=== PATIENT | female | born 1945 | race Caucasian/White ===

== ENCOUNTER → 2017-08-04 | Outpatient (CLI) | payer OTHER ==
[~2017-08-04] MED LIST: ASPI81CH6 CHEW; BENA25TA6 PO; GLUC500C5 PO; HYDR-3288 PO; HYDR25TA5 PO; LISI30TA4 PO; MAGN500T5 PO; MELO15TA20 PO; OXYB5TAB8 PO; SIMV10TA PO; TAMO20TA6 PO; VITATAB56 PO
== END ==
LOC: CPRE 09:02
PROVIDERS: ATTEND Orthopaedic Surgery Sports Medicine
DX: M16.12 Unilateral primary osteoarthritis, left hip (principal)

== ENCOUNTER 2017-08-21 05:06 | Inpatient (IN) | payer OTHER, MEDICARE ==
[~2017-08-21] VITALS: Ht 167.6 cm; Wt 75.6 kg
[~2017-08-21 05:06] MED LIST changes: -ASPI81CH6 CHEW; -HYDR-3288 PO
[2017-08-21] MEDS ORDERED: POVIDONE IODINE 5% (ANTISEPSIS KIT) 4 APPLICATIONS EACH NARE PRN (05:30)
[2017-08-21] MEDS ORDERED: LACTATED RINGER'S 1000 ML IV PRN (05:30)
[2017-08-21] MEDS ORDERED: SODIUM CHLORID 0.9% 500 ML IV PRN (05:30)
[2017-08-21] MEDS ORDERED: CHLORHEXIDINE GLUCONATE 2 % 1 PACK (2 CLOTHS) TOPICAL PRN (05:30)
[2017-08-21] MEDS ORDERED: METOPROLOL TARTRATE 25 MG TAB PO PRN (05:30)
[2017-08-21] MEDS ORDERED: POVIDONE IODINE 7.5% SCRUB 118 ML BOTTLE TOPICAL SCH (05:45)
[2017-08-21] MEDS ORDERED: SODIUM CHLORIDE 0.9% IV SCH (05:45)
[2017-08-21] MEDS ORDERED: DEXAMETHASONE SOD PHOS PF 10 MG/ML VIAL IV PUSH ONE (05:45)
[2017-08-21] MEDS ORDERED: CHLORHEXIDINE GLUCONATE 4% SOLN 120 ML BTL TOPICAL SCH (05:45)
[2017-08-21] MEDS ORDERED: EXPAREL PERI-ARTICULAR INJECTION (TOTAL VOL. 60 ML) P-ARTICULR SCH ×2 (05:45)
[2017-08-21] MEDS ORDERED: VANCOMYCIN 1000 MG/NS 250 ML (for <70 kg) IV SCH ×2 (05:45)
[2017-08-21] MEDS ORDERED: TRANEXAMIC ACID IV SCH (05:45)
[2017-08-21] MEDS ORDERED: TRANEXAMIC PERI-ARTICULAR 3,000 MG/NS 100 ML P-ARTICULR SCH ×2 (05:45)
[2017-08-21] MEDS ORDERED: GENTAMICIN SULFATE 80 MG/2 ML VIAL ONE (06:01)
[2017-08-21] MEDS ORDERED: VANCOMYCIN HCL 1000 MG VIAL ONE (06:04)
[2017-08-21] MEDS ORDERED: DEXAMETHASONE SOD PHOS PF 10 MG/ML VIAL IV PUSH SCH (06:15)
[2017-08-21] MEDS ORDERED: VANCOMYCIN 1 GM/200 ML PREMIX IV SCH (06:15)
[2017-08-21] MEDS ORDERED: DEXAMETHASONE SOD PHOS 20 MG/5 ML VIAL IV PUSH SCH (06:15)
[2017-08-21] MEDS ORDERED: BUPIVACAINE PF 0.75% DEX-WATER INJ 2 ML AMP ONE (06:38)
[2017-08-21] MEDS ORDERED: ceFAZolin INJ 1,000 MG VIAL ONE (06:40)
[2017-08-21] MEDS ORDERED: CEFAZOLIN INJ 2,000 MG in SODIUM CHLORIDE 0.9% INJ 100 ML IV SCH (06:45)
[2017-08-21] MEDS ORDERED: HYDR-3288 PO (06:53)
[2017-08-21] MEDS ORDERED: ASPI81CH6 CHEW (06:54)
[2017-08-21] MEDS ORDERED: Post-op Orders (for Pharmacy) XX ONE (07:00)
[2017-08-21] MEDS ORDERED: MORPHINE SULFATE 4 MG/ML INJ IV PUSH PRN (07:00)
[2017-08-21] MEDS ORDERED: ONDANSETRON HCL 4 MG/2 ML VIAL IVP PRN (07:00)
[2017-08-21] MEDS ORDERED: diphenhydrAMINE HCL 50 MG/ML VIAL IV PUSH PRN (07:00)
[2017-08-21] MEDS ORDERED: BISACODYL 10 MG SUPP RECTAL PRN (07:00)
[2017-08-21] MEDS ORDERED: PILL SPLITTER OTHER PRN (07:30)
[2017-08-21] MEDS ORDERED: PROPOFOL 200 MG/20 ML AMP ONE (08:03)
--- NOTE | 2017-08-21 08:29 | RADRPT ---
EXAM DATE/TIME: 08/21/2017 07:14 [facility] COMPARISON: No previous studies available for comparison. INDICATIONS : Left total hip replacement. MEDICAL HISTORY : None. SURGICAL HISTORY : None. ENCOUNTER: Initial ACUITY: 1 day PAIN SCORE: Non-responsive. LOCATION: Left hip. FINDINGS: The patient is status post left hip replacement with prosthesis in good position. No acute fracture o r dislocation is noted. CONCLUSION: Status post left hip replacement with prosthesis in good position. Ronen Quintana MD on August 21, 2017 at 8:27 Board Certified Radiologist. This report was verified electronically.
[2017-08-21] MEDS ORDERED: DO NOT ADM ANY ANTICOAGULANT DRUGS PRN (08:37)
[2017-08-21] MEDS ORDERED: MIDAZOLAM HCL 2 MG/2 ML VIAL ONE (08:47)
[2017-08-21] MEDS: TAMOXIFEN CITRATE 10 MG TAB PO SCH (09:00)
--- NOTE | 2017-08-21 09:11 | MP ---
cc: Ruslan Cisneros MD DATE OF OPERATION: PREOPERATIVE DIAGNOSIS: Left hip osteoarthritis. POSTOPERATIVE DIAGNOSIS: Left hip osteoarthritis. PROCEDURE: Left total hip arthroplasty. SURGEON: Ruslan Cisneros MD MANAGER HOME: JHONATHAN Rao. ANESTHESIA: Spinal. ESTIMATED BLOOD LOSS: 300 mL COMPLICATIONS: None. IMPLANTS USED: DePuy Corail size 12 press-fit standard offset femoral stem size 52, solid Redfield Gription cup, 36 mm highly cross-linked polyethylene neutral liner, 36 mm cobalt chrome head, +1.5 neck. JUSTIFICATION: The patient is a 71-year-old female with history of severe end-stage osteoarthritis involving the left hip. She has severe disabling pain with standing, walking, ambulation, weightbearing activities and severe pain at rest. She has failed greater than 3 months of nonoperative conservative treatment to include medications, therapy, injections, ambulatory assist aids, home exercise program, activity modification, weight loss attempts. X-ray of the left hip revealed severe end-stage arthritis with [id number] joint space narrowing, subchondral sclerosis, subchondral cysts, osteophyte formation with subluxation and deformity. The patient was counseled on the risks and alternatives of a total hip arthroplasty. The risks were discussed, which include but are not limited to anesthesia, bleeding, infection, damage to nerves and blood vessels, pain, stiffness, fracture dislocations, leg length discrepancy, blood clots, pulmonary embolism and even . The patient's pain is very severe. She favors the benefits over the risks. She did wish to proceed with surgery. PROCEDURE IN DETAIL: Written consent was obtained. The patient was identified by name, taken to the operating room, placed supine on the operating table. Spinal anesthesia was administered to the patient as well as 2 grams of IV Ancef and 1 gram of IV vancomycin. The left and right feet were placed in padded traction boots. The left hip and left lower extremity prepped and draped using isopropyl alcohol, Hibiclens solution and ChloraPrep solution. After a timeout was performed, a longitudinal incision was made over the anterolateral aspect of the left hip. The fascial layer was incised. Dissection was carried over tensor fascia debi, beneath the rectus femoris to allow exposure of the anterior hip capsule. A capsulotomy incision was performed. An oscillating saw was used to perform a femoral neck cut. The osteoarthritic femoral head and neck component was removed. A 10-blade scalpel was used to excise the labrum. Sequential reaming began at size 47, was carried through to size 52. Subsequently, a solid Redfield Gription cup 52 mm was inserted into the acetabulum in approximately 45 degrees of abduction, 10 degrees of anteversion in a press-fit manner. There was good purchase and fixation. After insertion of the cup, a screw hole eliminator was placed, followed by the neutral liner. The liner was impacted in place and tested for stability. Attention was turned to the femur. The leg was externally rotated, extended, and adducted. The capsule was released off the undersurface of the greater trochanter to allow for elevation and lateralization of the femur. A box-cutting osteotome was used to gain entrance into the intramedullary canal of the femur, followed by canal finder and sequential broaching up to size 12. A calcar planer was used to plane the calcar. The trial head and neck combinations were evaluated and final components implanted as described. With the current components, the leg could achieve external rotation of 70 degrees and extension all the way down to the ground without evidence of anterior instability or impingement. Fluoroscopic imaging showed appropriate implantation of components. Surgical wound was thoroughly irrigated with sterile saline plus antibiotic-impregnated solution. Fascial layer was closed with #1 Vicryl suture, subcutaneous layer with 2-0 Vicryl suture. Skin was closed with Dermabond. Sterile dressing was applied. The patient tolerated with no intraoperative complications noted. Riley Kwon, physician psychological assistant certified, was present during the entire procedure to include patient positioning and the procedure itself. The medical necessity of a physician psychological assistant was indicated in this case due to the complexity of the procedure. He assisted with manipulation of the leg and also retraction of muscles, tendons, bone, and neurovascular structures. He assisted with preparation of bone also implantation of the prosthetic replacement. MD MIC Nieto/MEME , 08:26 AM , 09:09 AM
[2017-08-21] MEDS: SODIUM CHLOR 0.9% 1000 ML INJ 1,000 ML IV SCH ×2 (09:24→17:11)
--- NOTE | 2017-08-21 09:30 | RADRPT ---
EXAM DATE/TIME: 08/21/2017 09:03 [facility] COMPARISON: HIP LEFT (AP&LAT 2/3VWS) W AP PELVIS, August 21, 2017, 7:14. INDICATIONS : Post op left hip surgery. MEDICAL HISTORY : None. SURGICAL HISTORY : None. ENCOUNTER: Initial ACUITY: 1 day PAIN SCORE: 0/10 LOCATION: Left hip and pelvis FINDINGS: AP and crosstable lateral views of the left hip were obtained as well as an AP view the pelvis. The p atient is again noted to be status post left hip arthroplasty. The femoral and acetabular components are intact and in normal alignment. There is surrounding soft tissue swelling and gas within the tiss ue planes. There is no evidence of fracture. CONCLUSION: Expected postoperative changes status post left hip arthroplasty. Robert Aviles MD on August 21, 2017 at 9:26 Board Certified Radiologist. This report was verified electronically.
[2017-08-21] MEDS ORDERED: *morphine SULFATE 4 MG/ML PERIprocedure ONLY ONE (10:54)
[2017-08-21] MEDS: ACETAMINOPHEN/HYDROcodone 325 MG/7.5 MG TAB PO PRN ×3 (12:08→21:19)
--- NOTE | 2017-08-21 12:46 | HHI.DCPOC ---
Discharge Care Plan Diagnosis: (1) Primary localized osteoarthrosis, pelvic region and thigh Your Health Problems Are: Difficulty with ADL Goals to Promote Your Health * To prevent worsening of your condition and complications * To maintain your health at the optimal level Directions to Meet Your Goals Take your medications as prescribed Follow your dietary instruction Follow activity as directed Keep your appointments as scheduled Take your immunizations and boosters as scheduled If your symptoms worsen call your PCP, if no PCP go to Urgent Care Center or Emergency Room Smoking is Dangerous to Your Health. Avoid second hand smoke Call the 24-hour hour crisis hotline for domestic abuse at Ruslan Kwon Aug 21, 2017 12:46
[2017-08-21 16:00] VITALS: BP 128/59; PULSE 81; RESP 18; TEMP 98.1; O2SAT 97
[2017-08-21] MEDS: VANCOMYCIN INJ 1,000 MG in SODIUM CHLOR 0.9% 250 ML INJ 250 ML IV SCH (17:11)
[2017-08-21 17:12] VITALS: BP 128/59; PULSE 86; RESP 16; TEMP 98.1; O2SAT 97
[2017-08-21] MEDS ORDERED: OXYB5TAB8 PO (17:47)
--- NOTE | 2017-08-21 18:05 | PD.CONS ---
HPI Service [facility] Consult Requested By Reason for Consult Medical management Primary Care Physician Aileen Hill MD Diagnoses: (1) Primary localized osteoarthrosis, pelvic region and thigh History of Present Illness 71-year-old female with a history of hypertension and breast cancer underwent a left hip replacement today and is recovering well postop. She states that she has been physically preparing for this and has already been up to the bathroom, ambulatory with a walker. She denies any shortness of breath, her pain is well controlled. Her past medical history includes hysterectomy, breast cancer in 2002. Her hypertension is well controlled on 2 medications. She is very positive, pleasant and has no complaints. Review of Systems Constitutional: DENIES: Fever, Weight gain, Weight loss, Chills Eyes: DENIES: Eye pain, Vision loss, Photosensitivity, Double Vision Respiratory: DENIES: Apneas, Cough, Snoring, Wheezing, Hemoptysis Cardiovascular: DENIES: Chest pain, Syncope, Dyspnea on Exertion Gastrointestinal: DENIES: Abdominal pain, Bloody stools, Constipation, Diarrhea , Nausea, Vomiting Musculoskeletal: COMPLAINS OF: Joint pain Integumentary: DENIES: Abnormal pigmentation, Pruritus, Rash Immunologic/allergic: DENIES: Eczema, Urticaria Neurologic: DENIES: Localized weakness, Paresthesias, Seizures, Speech Problems Psychiatric: DENIES: Anxiety, Confusion, Mood changes, Depression, Hallucinations, Agitation, Suicidal Ideation Past Family Social History Allergies: Coded Allergies: Penicillins (Verified Allergy, Unknown, ITCHING, 08/21/17) Past Medical History Breast cancer, hypertension, skin cancer of upper lip Past Surgical History Hysterectomy 2007, breast cancer 2002 Family History Father of heart attack, mother of cancer (type uncertain) Social History 1-2 drinks socially once per week, does not smoke Physical Exam Vital Signs Vital Signs Date Time Temp Pulse Resp B/P (MAP) Pulse Ox O2 Delivery O2 Flow Rate FiO2 08/21/17 17:12 98.1 86 16 128/59 (82) 97 08/21/17 16:50 99.0 83 17 100/51 (67) 100 Room Air 08/21/17 16:00 82 19 116/56 (76) 100 Room Air 08/21/17 15:00 91 14 98/54 (69) 99 Room Air 08/21/17 14:00 90 18 104/53 (70) 100 Nasal Cannula 2 08/21/17 13:00 94 21 95/53 (67) 100 Nasal Cannula 2 08/21/17 12:00 72 15 91/52 (65) 100 Nasal Cannula 2 08/21/17 11:00 76 13 101/58 (72) 100 Nasal Cannula 2 08/21/17 10:30 75 15 109/56 (73) 100 Nasal Cannula 2 08/21/17 10:15 79 14 104/48 (66) 100 Nasal Cannula 2 08/21/17 10:00 77 17 94/51 (65) 100 Nasal Cannula 2 08/21/17 09:45 68 18 99/54 (69) 100 Nasal Cannula 2 08/21/17 09:30 69 21 99/51 (67) 100 Nasal Cannula 2 08/21/17 09:15 69 15 100/51 (67) 97 Nasal Cannula 2 08/21/17 09:00 75 14 94/47 (63) 98 Nasal Cannula 2 08/21/17 08:45 74 16 102/53 (69) 96 Nasal Cannula 2 08/21/17 08:40 96.9 76 20 98/50 (66) 92 Nasal Cannula 2 08/21/17 05:55 97.8 89 16 159/69 (99) 99 Physical Exam GENERAL: This is a well-nourished, well-developed patient, in no apparent distress. SKIN: No rashes, ecchymoses or lesions. Cool and dry. HEAD: Atraumatic. Normocephalic. No temporal or scalp tenderness. EYES: Pupils equal round and reactive. Extraocular motions intact. No scleral icterus. No injection or drainage. ENT: Nose without bleeding, purulent drainage or septal hematoma. Throat without erythema, tonsillar hypertrophy or exudate. Uvula midline. Airway patent. NECK: Trachea midline. No JVD or lymphadenopathy. Supple, nontender, no meningeal signs. CARDIOVASCULAR: Regular rate and rhythm without murmurs, gallops, or rubs. RESPIRATORY: Clear to auscultation. Breath sounds equal bilaterally. No wheezes , rales, or rhonchi. GASTROINTESTINAL: Abdomen soft, non-tender, nondistended. No hepato-splenomegaly , or palpable masses. No guarding. MUSCULOSKELETAL: Left hip has surgical bandage over surgical incision. Distal sensations in lower extremities are intact, no sign of DVT, no edema. NEUROLOGICAL: Awake and alert. Cranial nerves II through XII intact. Motor and sensory grossly within normal limits. Five out of 5 muscle strength in all muscle groups. Normal speech. Assessment and Plan Problem List: (1) Primary localized osteoarthrosis, pelvic region and thigh ICD Code: M16.10 - Unilateral primary osteoarthritis, unspecified hip Assessment and Plan Elective left hip replacement Patient reports she has osteoarthritis in both hips but the left hip pain became intolerable She has unimpressive ability following surgery only today. She has already ambulated to the bathroom. Orthopedics to determine timing of discharge Patient is on Lovenox Hypertension Home medications reviewed Patient has been hypotensive today so all medications for hypertension have been held until pressure increases h/o Breast cancer Patient takes tamoxifen Slight increased risk of blood clots associated with tamoxifen, so will recommend she resume this in about 2 weeks DVT prophylaxis Tiburcio Child MD Aug 21, 2017 18:05
[2017-08-21 19:40] VITALS: O2SAT 97
[2017-08-21 20:00] VITALS: BP 114/53; PULSE 79; RESP 18; TEMP 97.9; O2SAT 95
[2017-08-21] MEDS ORDERED: PRAVASTATIN SOD 10 MG TAB PO SCH (21:00)
[2017-08-21] MEDS ORDERED: ZOLPIDEM TARTRATE 5 MG TAB PO PRN (21:00)
[2017-08-21] MEDS: OXYBUTYNIN CHLORIDE 5 MG TAB PO SCH (21:17)
[2017-08-22 01:30] VITALS: BP 103/55; PULSE 71; RESP 17; TEMP 97.7; O2SAT 95
[2017-08-22] MEDS: ACETAMINOPHEN/HYDROcodone 325 MG/7.5 MG TAB PO PRN ×3 (01:38→12:40)
[2017-08-22] MEDS: SODIUM CHLOR 0.9% 1000 ML INJ 1,000 ML IV SCH (03:30)
[2017-08-22 05:15] VITALS: BP 109/52; PULSE 79; RESP 16; TEMP 97.9; O2SAT 96
[2017-08-22] MEDS: VANCOMYCIN INJ 1,000 MG in SODIUM CHLOR 0.9% 250 ML INJ 250 ML IV SCH (05:32)
[2017-08-22 05:52] LABS: HEMATOCRIT 26.3 % (35.0-46.0); HEMOGLOBIN 9.2 GM/DL (11.6-15.3); MEAN CELL VOLUME 90.6 FL (80.0-100.0); MEAN CORPUSCULAR HEMOGLOBIN 31.8 PG (27.0-34.0); MEAN CORPUSCULAR HGB CONC 35.1 % (32.0-36.0); MEAN PLATELET VOLUME 8.4 FL (7.0-11.0); PLATELET COUNT 151 TH/MM3 (150-450); WHITE BLOOD COUNT 7.8 TH/MM3 (4.0-11.0)
[2017-08-22 08:00] VITALS: BP 107/53; PULSE 68; RESP 16; TEMP 97.7; O2SAT 97
[2017-08-22] MEDS ORDERED: ENOXAPARIN SODIUM 40 MG/0.4 ML SYRINGE SQ SCH (08:00)
[2017-08-22] MEDS: OXYBUTYNIN CHLORIDE 5 MG TAB PO SCH (08:17)
--- NOTE | 2017-08-22 08:37 | PD.ORT.PN ---
Subjective Post Op Day #: 1 Subjective Remarks doing well. has been ambulating with PT. pain tolerable. Objective Vitals Vital Signs Date Time Temp Pulse Resp B/P (MAP) Pulse Ox O2 Delivery O2 Flow Rate FiO2 08/22/17 08:00 97.7 68 16 107/53 (71) 97 08/22/17 05:15 97.9 79 16 109/52 (71) 96 08/22/17 01:30 97.7 71 17 103/55 (71) 95 08/21/17 20:00 97.9 79 18 114/53 (73) 95 08/21/17 19:40 97 21 08/21/17 17:12 98.1 86 16 128/59 (82) 97 08/21/17 16:50 99.0 83 17 100/51 (67) 100 Room Air 08/21/17 16:00 98.1 81 18 128/59 (82) 97 08/21/17 16:00 82 19 116/56 (76) 100 Room Air 08/21/17 15:00 91 14 98/54 (69) 99 Room Air 08/21/17 14:00 90 18 104/53 (70) 100 Nasal Cannula 2 08/21/17 13:00 94 21 95/53 (67) 100 Nasal Cannula 2 08/21/17 12:00 72 15 91/52 (65) 100 Nasal Cannula 2 08/21/17 11:00 76 13 101/58 (72) 100 Nasal Cannula 2 08/21/17 10:30 75 15 109/56 (73) 100 Nasal Cannula 2 08/21/17 10:15 79 14 104/48 (66) 100 Nasal Cannula 2 08/21/17 10:00 77 17 94/51 (65) 100 Nasal Cannula 2 08/21/17 09:45 68 18 99/54 (69) 100 Nasal Cannula 2 08/21/17 09:30 69 21 99/51 (67) 100 Nasal Cannula 2 08/21/17 09:15 69 15 100/51 (67) 97 Nasal Cannula 2 08/21/17 09:00 75 14 94/47 (63) 98 Nasal Cannula 2 08/21/17 08:45 74 16 102/53 (69) 96 Nasal Cannula 2 08/21/17 08:40 96.9 76 20 98/50 (66) 92 Nasal Cannula 2 I/O 08/21/17 08/21/17 08/21/17 08/22/17 08/22/17 08/22/17 07:00 15:00 23:00 07:00 15:00 23:00 Intake Total 1325 ml 840 ml 1065 ml Output Total 200 ml 400 ml Balance 1125 ml 440 ml 1065 ml Intake Oral 25 ml 250 ml 480 ml IV Total 0 ml 590 ml 585 ml Other 1300 ml Output Urine Total 400 ml Estimated Blood Loss 200 ml # Voids 3 # Bowel Movements 0 Result Diagram: 08/22/17 0528 Objective Remarks in bed, nad dressing c/d/i thigh soft neg homans nvi Assessment & Plan Ortho Post Op Day #: 1 Problem List: Assessment and Plan s/p L VALDIMIR wbat ok to maintain dressing unless saturated lovenox, d/c on asa81 d/c planning home with [facility] and pt - cleared today if does well in PT rx in chart f/up dr. ochoa 2 weeks Ruslan Kwon Aug 22, 2017 08:37
--- NOTE | 2017-08-22 08:38 | HHI.FF ---
Face to Face Verification Diagnosis: (1) Primary localized osteoarthrosis, pelvic region and thigh Physical Therapy Gait training, Safety evaluation, Transfer training, bed to chair Hip: Total hip, Protocol: Left Left LE Weight Bearing: WB as tolerated Nursing RN: 3 days/week x 2 weeks Nursing: Dressing changes Dressing Changes: Daily dressing change I have seen patient Zenobia Ortega on 08/22/17. My clinical findings support the need for the requested home health care services because: Limited ability to care for self High risk of falls I certify that my clinical findings support that this patient is homebound because: Post-op weakness Unsteady gait/balance Ruslan Kwon Aug 22, 2017 08:38
[2017-08-22] MEDS ORDERED: LISINOPRIL 20 MG TAB PO SCH (09:00)
[2017-08-22] MEDS ORDERED: HYDROCHLOROTHIAZIDE 25 MG TAB PO SCH (09:00)
[2017-08-22 09:31] VITALS: O2SAT 99
[2017-08-22 11:47] VITALS: BP 107/52; PULSE 69; RESP 16; TEMP 98; O2SAT 93
[2017-08-22] MEDS: TAMOXIFEN CITRATE 10 MG TAB PO SCH (12:39)
--- NOTE | 2017-08-22 15:48 | HHI.PR ---
Subjective Remarks Late entry Patient was seen earlier today. She is in bed she says she feels tired she had physical therapy today. Ovid nauseated in the morning however she is able to eat. No vomiting or diarrhea. No fever or chills. Objective Vitals Vital Signs Date Time Temp Pulse Resp B/P (MAP) Pulse Ox O2 Delivery O2 Flow Rate FiO2 08/22/17 11:47 98.0 69 16 107/52 (70) 93 08/22/17 09:31 99 21 08/22/17 08:00 97.7 68 16 107/53 (71) 97 08/22/17 05:15 97.9 79 16 109/52 (71) 96 08/22/17 01:30 97.7 71 17 103/55 (71) 95 08/21/17 20:00 97.9 79 18 114/53 (73) 95 08/21/17 19:40 97 21 08/21/17 17:12 98.1 86 16 128/59 (82) 97 08/21/17 16:50 99.0 83 17 100/51 (67) 100 Room Air 08/21/17 16:00 98.1 81 18 128/59 (82) 97 08/21/17 16:00 82 19 116/56 (76) 100 Room Air I/O 08/21/17 08/21/17 08/21/17 08/22/17 08/22/17 08/22/17 06:59 14:59 22:59 06:59 14:59 22:59 Intake Total 1325 ml 840 ml 1065 ml Output Total 200 ml 400 ml Balance 1125 ml 440 ml 1065 ml Intake Oral 25 ml 250 ml 480 ml IV Total 0 ml 590 ml 585 ml Other 1300 ml Output Urine Total 400 ml Estimated Blood Loss 200 ml # Voids 3 # Bowel Movements 0 Result Diagram: 08/22/17 0528 Imaging Last Impressions Hip and Pelvis X-Ray 08/21/17 0651 Signed Impressions: Service Date/Time: Monday, August 21, 2017 09:03 - CONCLUSION: Expected postoperative changes status post left hip arthroplasty. Robert Aviles MD Objective Remarks GENERAL: This is a well-nourished, well-developed patient, in no apparent distress. CARDIOVASCULAR: Regular rate and rhythm without murmurs, gallops, or rubs. RESPIRATORY: Clear to auscultation. Breath sounds equal bilaterally. No wheezes , rales, or rhonchi. GASTROINTESTINAL: Abdomen soft, non-tender, nondistended. No hepato-splenomegaly , or palpable masses. No guarding. MUSCULOSKELETAL: Left hip has surgical bandage over surgical incision. Distal sensations in lower extremities are intact, no sign of DVT, no edema. NEUROLOGICAL: Awake and alert. Cranial nerves II through XII intact. Motor and sensory grossly within normal limits. Five out of 5 muscle strength in all muscle groups. Normal speech. A/P Problem List: (1) Primary localized osteoarthrosis, pelvic region and thigh ICD Code: M16.10 - Unilateral primary osteoarthritis, unspecified hip Assessment and Plan Elective left hip replacement Patient reports she has osteoarthritis in both hips but the left hip pain became intolerable She has unimpressive ability following surgery only today. She has already ambulated to the bathroom. Orthopedics to determine timing of discharge Patient is on Lovenox Hypertension Home medications reviewed Patient has been hypotensive today so all medications for hypertension have been held until pressure increases h/o Breast cancer Patient takes tamoxifen Slight increased risk of blood clots associated with tamoxifen, so will recommend she resume this in about 2 weeks DVT prophylaxis Lovenox appears medically stable. Can be discharged, to follow-up with PCP and consultants Marleni Linder MD Aug 22, 2017 15:48
[2017-08-22] MEDS ORDERED: DOCUSATE SODIUM 100 MG CAP PO SCH (21:00)
[2017-08-22] MEDS ORDERED: MULTIVITAMINS/MINERALS THERAPEUTIC TAB PO SCH (21:00)
--- NOTE | 2017-08-23 15:22 | MD ---
cc: Ruslan Cisneros MD DATE OF DISCHARGE: 08/22/2017 ADMITTING DIAGNOSIS: Severe degenerative osteoarthritis of the left hip. DISCHARGE DIAGNOSIS: Severe degenerative osteoarthritis of the left hip. HISTORY OF PRESENT ILLNESS: Ms. Ortega is a 71-year-old female who presented to the [facility] for evaluation by Dr. Ruslan Cisneros regarding progressive and severe left hip pain. The patient states the pain is a severe, aching sensation aggravated by weightbearing activities. She notes the pain is inhibiting her activities of daily living currently and her ability to ambulate safely. She has no alleviating factors. At this point in time in the past, she has tried medications, assistive devices, physical therapy and home exercise program without relief of symptoms. She does have x-ray evidence of severe degenerative osteoarthritis of the left hip. While in the office, the patient was counseled on her diagnosis and treatment options. The risks, benefits, and indications were all discussed. The patient did elect to proceed with surgical intervention to include left total hip arthroplasty. HOSPITAL COURSE: Date of surgery, 08/21/2017, left total hip arthroplasty, anterior approach. Postop after surgery, the patient admitted to [facility] where she received appropriate medical management, pain control, DVT prophylaxis, as well as physical therapy. DISCHARGE: Once being discharged from the hospital, the patient was cleared to go home where she received home health and home physical therapy. She is in stable condition. She may weight bear as tolerated with anterior hip precaution. She has been instructed on appropriate wound care management. She has been provided prescriptions for pain control as well as DVT prophylactic medication. She has also been provided a followup appointment in approximately 2 weeks from her date of surgery. The patient has asked appropriate questions which have been answered. The patient has been discharged. Dictated by JHONATHAN Callaway Ruslan Cisneros MD JWM/AMINA , 08:12 AM , 08:23 AM
== END 2017-08-22 14:46 | disposition home or self-care (01) | DRG 470 ==
LOC: HSDI 05:06 → N06B 16:59
PROVIDERS: ADMIT Orthopaedic Surgery Sports Medicine; ATTEND Orthopaedic Surgery Sports Medicine
PROC: 0SRB02A Replacement of Left Hip Joint with Metal on Polyethylene Synthetic Substitute, Uncemented, Open Approach (ICD-10-PCS; principal; 2017-08-21 06:45)
DX: M16.0 Bilateral primary osteoarthritis of hip (principal); I95.9 Hypotension, unspecified; I10 Essential (primary) hypertension; E78.5 Hyperlipidemia, unspecified; Z85.3 Personal history of malignant neoplasm of breast; Z92.21 Personal history of antineoplastic chemotherapy; Z92.3 Personal history of irradiation; Z85.819 Personal history of malignant neoplasm of unspecified site of lip, oral cavity, and pharynx
CPT/HCPCS: 73502; 76000; 85027; 86850; 86900; 86901; 94150; C1776; J0690; J1100; J1580; J1650; J2250; J2270; J2405; J3010; J3370; J7030; J7050; J7120